=== PATIENT | female | born 1995 | race Caucasian/White ===

== ENCOUNTER 2020-10-25 04:55 | Emergency (ER) | payer OTHER ==
[~2020-10-25] VITALS: Ht 147.3 cm; Wt 49.9 kg
[2020-10-25 05:05] VITALS: BP 148/88
--- NOTE | 2020-10-25 05:25 | NUR ---
BIBS FOR C/O VAGINAL ITCHING, INFLAMATION AND DISCHARGE FRO THE PST MONTH. DENIED VAGINAL BLEEDING. PT UNSURE OF HER STATUS W/ LMP OF 10/02. PT AMBULATORY TO THE BATHROOM, URIEN SAMPLE OBTAINED, PT WAS PLACED IN BED 16 AND GOWNED UP.
--- NOTE | 2020-10-25 05:30 | NUR ---
URINE SAMPLE COLLECTED AND SENT TO LAB
--- NOTE | 2020-10-25 05:41 | NUR ---
Patient eloped from facility and left without being seen by a doctor. ER MD notified.
== END 2020-10-25 05:45 | disposition left against medical advice (07) ==
LOC: ER 04:59
DX: Z53.21 Procedure and treatment not carried out due to patient leaving prior to being seen by health care provider (principal); N89.9 Noninflammatory disorder of vagina, unspecified; Z98.890 Other specified postprocedural states
CPT/HCPCS: 84703-TC

== ENCOUNTER 2020-10-30 04:05 | Emergency (ER) | payer OTHER ==
[~2020-10-30] VITALS: Ht 147.3 cm; Wt 49.9 kg
--- NOTE | 2020-10-30 04:15 | NUR ---
pt bibself c/o vaginal discomfort. Pt [id number] breathing evenly and unlabored. Pt states "its been itchy and red for too long." Pt placed in gown, attached to monitor and pox. Pt skin warm, dry, and intact. Pt given blanket and call light.
[2020-10-30] MEDS ORDERED: ACETAMINOPHEN ES 500 MG TABLET ONE (04:29)
[2020-10-30] MEDS ORDERED: ACETAMINOPHEN ES 500 MG TABLET PO ONE (04:30)
--- NOTE | 2020-10-30 04:43 | NUR ---
lab at bedside
--- NOTE | 2020-10-30 05:03 | NUR ---
vaginal swabs sent to lab
--- NOTE | 2020-10-30 05:06 | NUR ---
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
[2020-10-30 05:13] LABS: BILIRUBIN,URINE Negative (NEGATIVE); COLOR,URINE YELLOW (YELLOW); LEUKOCYTE ESTERASE ,URINE Moderate (NEGATIVE); NITRITE, URINE Negative (NEGATIVE); PROTEIN,URINE 30 mg/dl (NEGATIVE); UGLUCOSE Negative (NEGATIVE)
[2020-10-30] MEDS ORDERED: DOXY100C2 PO (05:28)
[2020-10-30] MEDS ORDERED: CEFTRIAXONE 500 MG VIAL ONE (05:30)
[2020-10-30] MEDS ORDERED: CEFTRIAXONE 500 MG VIAL IM ONE (05:30)
[2020-10-30] MEDS ORDERED: PENICILLIN G BENZATHINE 2.4 MMU/4 ML ML IM ONE ×2 (05:30)
[2020-10-30 05:32] LABS: SQUAMOUS EPITHELIAL CELL,UR Few /HPF (None Seen)
[2020-10-30 05:33] LABS: BACTERIA,URINE Few /HPF (None Seen)
--- NOTE | 2020-10-30 05:47 | NUR ---
Patient discharged to home in stable condition. Written and verbal after care instructions given. Patient verbalizes understanding of instruction. Pt ambulatory with a steady gait
[2020-10-30 05:55] VITALS: BP 140/85
== END 2020-10-30 05:47 | disposition home or self-care (01) ==
LOC: ER 04:10
DX: R10.2 Pelvic and perineal pain (principal); A64 Unspecified sexually transmitted disease; F17.200 Nicotine dependence, unspecified, uncomplicated; Z98.890 Other specified postprocedural states; Z88.8 Allergy status to other drugs, medicaments and biological substances; Z79.899 Other long term (current) drug therapy
CPT/HCPCS: 81001; 84703; 87086; 87210; 87491; 87591; 87806; 96372 ×2; 99284; J0558; J0696; 36415; 86780

== ENCOUNTER 2021-01-19 20:04 | Emergency (ER) | payer OTHER ==
[~2021-01-19] VITALS: Ht 147.3 cm; Wt 54.4 kg
[~2021-01-19 20:04] MED LIST: DOXY100C2 PO
[2021-01-19 20:27] VITALS: BP 122/75
[2021-01-19] MEDS ORDERED: SULF1TAB48 PO (20:52)
[2021-01-19] MEDS ORDERED: DOXY-326 PO (20:52)
[2021-01-19] MEDS ORDERED: CEPH500T PO (20:52)
[2021-01-19] MEDS ORDERED: PENICILLIN G BENZATHINE 2.4 MMU/4 ML ML IM ONE ×2 (20:57→21:00)
[2021-01-19] MEDS ORDERED: CEFTRIAXONE 500 MG VIAL ONE (20:58)
[2021-01-19] MEDS ORDERED: DOXYCYCLINE HYCLATE (100 MG) 100 MG TABLET ONE (20:58)
[2021-01-19] MEDS ORDERED: DOXYCYCLINE HYCLATE (100 MG) 100 MG TABLET PO ONE (21:00)
[2021-01-19] MEDS ORDERED: CEFTRIAXONE 500 MG VIAL IM ONE (21:00)
[2021-01-19] MEDS ORDERED: LIDOCAINE /MPF 1% VIAL 5 ML VIAL ONE (21:02)
--- NOTE | 2021-01-19 21:21 | NUR ---
Patient discharged to home in stable condition. Written and verbal after care instructions given. Patient verbalizes understanding of instruction. Pt ambulatory with a steady gait
== END 2021-01-19 22:37 | disposition home or self-care (01) ==
LOC: ER 20:08
DX: L73.9 Follicular disorder, unspecified (principal); Z20.2 Contact with and (suspected) exposure to infections with a predominantly sexual mode of transmission; Z98.890 Other specified postprocedural states; Z88.8 Allergy status to other drugs, medicaments and biological substances
CPT/HCPCS: 96372 ×2; 99284; J0558; J0696; J3490

== ENCOUNTER 2021-03-22 01:31 | Emergency (ER) | payer OTHER ==
[~2021-03-22] VITALS: Ht 147.3 cm; Wt 49.9 kg
[~2021-03-22 01:31] MED LIST changes: +CEPH500T PO; +DOXY-326 PO; +SULF1TAB48 PO
[2021-03-22 01:45] VITALS: BP 123/91
[2021-03-22] MEDS ORDERED: IBUP-1955 PO (03:07)
[2021-03-22] MEDS ORDERED: CEPH500T PO (03:07)
[2021-03-22] MEDS ORDERED: SULF1TAB48 PO (03:07)
--- NOTE | 2021-03-22 03:10 | NUR ---
Patient discharged to home in stable condition. Written and verbal after care instructions given. Patient verbalizes understanding of instruction. RX given.
== END 2021-03-22 03:12 | disposition home or self-care (01) ==
LOC: ER 01:35
DX: L03.114 Cellulitis of left upper limb (principal); J45.909 Unspecified asthma, uncomplicated; Z98.890 Other specified postprocedural states; Z88.8 Allergy status to other drugs, medicaments and biological substances; Z79.899 Other long term (current) drug therapy

== ENCOUNTER 2023-11-20 16:14 | Emergency (ER) | payer OTHER ==
[~2023-11-20] VITALS: Ht 147.3 cm; Wt 49.9 kg
[~2023-11-20 16:14] MED LIST changes: +IBUP-1955 PO
[2023-11-20 16:24] VITALS: TEMP 98.1
[2023-11-20] MEDS ORDERED: LIDOCAINE HCL/MPF 1% 30 ML VIAL IJ ONE (19:50)
[2023-11-20] MEDS ORDERED: SULF1TAB48 PO (21:31)
[2023-11-20] MEDS ORDERED: CEPH500C2 PO (21:31)
[2023-11-20 21:43] VITALS: BP 121/70; O2SAT 100
[2023-11-20] MEDS: CEPHALEXIN MONOHYDRATE 500 MG CAPSULE PO ONE (21:43)
[2023-11-20] MEDS: SULFAMETH/TRIMETH 800/160 MG 1 UDTAB TABLET PO ONE (21:43)
== END 2023-11-20 18:20 | disposition left against medical advice (07) ==
LOC: ER 16:19
DX: L02.411 Cutaneous abscess of right axilla (principal); J45.909 Unspecified asthma, uncomplicated; F17.200 Nicotine dependence, unspecified, uncomplicated; F10.10 Alcohol abuse, uncomplicated; F15.10 Other stimulant abuse, uncomplicated; Z88.8 Allergy status to other drugs, medicaments and biological substances; Z91.013 Allergy to seafood; Y90.9 Presence of alcohol in blood, level not specified
CPT/HCPCS: 99283; J3490